=== PATIENT | female | born 1960 | race Caucasian/White ===

== ENCOUNTER 2021-01-20 09:49 | Outpatient (CLI) | payer OTHER, SELFPAY | END 2021-01-20 09:50 | disposition home or self-care (01) | LOC: CHSCOVIDVC 09:49 | PROVIDERS: PCP Internal Medicine | DX: Z23 Encounter for immunization (principal) | CPT/HCPCS: 0011A; 91301 ==

== ENCOUNTER 2021-02-17 09:54 | Outpatient (CLI) | payer OTHER, SELFPAY | END 2021-02-17 09:55 | disposition home or self-care (01) | LOC: CHSCOVIDVC 09:54 | PROVIDERS: PCP Internal Medicine | DX: Z23 Encounter for immunization (principal) | CPT/HCPCS: 0012A; 91301 ==